=== PATIENT | male | born 1965 | race Caucasian/White ===

== ENCOUNTER → 2018-07-26 | Outpatient (REF) ==
--- NOTE | 2018-07-26 15:38 | RADIOLOGY IMAGING REPORT ---
FACILITY: [facility] [place] PATIENT NAME: Braden Monterroso : 1965 MR: [id number] V: [id number] EXAM DATE: ORDERING PHYSICIAN: [facility] TECHNOLOGIST: Location: [facility] Patient: Braden Monterroso : 1965 Visit/Account:[id number] Date of Sevice: 07/26/2018 Exam type: 2 views of the skull History: Trauma, patient Comparison: None. Findings: Extensive subcutaneous emphysema is noted overlying the neck and upper chest. Radiopaque foreign bod ies overlie the left aspect of the skull. Numerous facial and skull fractures identified specifically involving the frontal sinuses but also in volving the left parietal skull and likely the occipital skull bilaterally. There is likely a fractu re of the right maxillary sinus and floor of the right orbit with opacification. Fracture of the sup erior medial right orbit is noted. Plain films are suspicious of a LeFort facial fracture. IMPRESSION: 1. Extensive facial and skull fractures are noted and described above. Faint radiopaque foreign bod ies project over the left aspect of the skull. Extensive subcutaneous emphysema overlies the neck an d upper chest. Report Dictated By: Alfredo Lockwood MD at 07/26/2018 3:28 PM Report E-Signed By: Alfredo Lockwood MD at 07/26/2018 3:32 PM WSN:[email or web address]
== END ==
LOC: RAD 01:00 → EDSTATUS 10:38 → RAD 15:01
DX: Z04.89 Encounter for examination and observation for other specified reasons (principal)
CPT/HCPCS: 70250